=== PATIENT | female | born 1940 | race Caucasian/White ===

== ENCOUNTER 2017-10-13 16:24 | Inpatient (IN) | payer MEDICARE, OTHER ==
[~2017-10-13] VITALS: Ht 154.9 cm; Wt 81.6 kg
[2017-10-13] MEDS ORDERED: CLON0.2T PO (17:33)
[2017-10-13] MEDS ORDERED: METO-356 PO (17:33)
[2017-10-13] MEDS ORDERED: LOSA1TAB39 PO (17:33)
[2017-10-13] MEDS ORDERED: HYDR-3326 PO (17:38)
[2017-10-13] MEDS ORDERED: CELE200C PO (17:38)
[2017-10-13] MEDS ORDERED: GABA-534 PO (17:38)
[2017-10-13] MEDS ORDERED: ONDANSETRON 4 MG/2 ML VIAL IV ONE (17:45)
[2017-10-13] MEDS ORDERED: IV NORMAL SALINE 1000 ML BAG IV ONE (17:45)
[2017-10-13] MEDS ORDERED: MORPHINE SULFATE 2 MG/1 ML DISP.SYRIN IV ONE (17:45)
[2017-10-13] MEDS ORDERED: TRAM50TA2 PO (17:47)
[2017-10-13] MEDS ORDERED: EZET10TA13 PO (17:47)
[2017-10-13] MEDS ORDERED: NYST5ORA PO ×2 (17:47)
[2017-10-13] MEDS ORDERED: DICL100G16 TP (17:47)
[2017-10-13] MEDS ORDERED: ASPI-605 PO (17:47)
[2017-10-13] MEDS ORDERED: ESOM40CA PO (17:47)
[2017-10-13] MEDS ORDERED: ZOLP10TA6 PO (17:47)
[2017-10-13] MEDS ORDERED: LORA1TAB PO (17:47)
[2017-10-13] MEDS ORDERED: ALEN70TA45 PO (17:47)
[2017-10-13] MEDS ORDERED: MORPHINE SULFATE 4 MG/1 ML DISP.SYRIN ONE (18:06)
[2017-10-13] MEDS ORDERED: ONDANSETRON 4 MG/2 ML VIAL ONE ×2 (18:06→20:24)
--- NOTE | 2017-10-13 18:06 | NUR ---
LABS DRAWN AND SENT,MORPHINE AND ZOFRAN ADMINISTERED, PT TO CT SCAN VIA GUERNEY, URINE SENT.
[2017-10-13 18:08] LABS: *BILIRUBIN,URIN NEGATIVE (NEGATIVE); *BLOOD, URINE 3+ (NEGATIVE); *CLARITY,URINE SLIGHTLY CLOUDY (CLEAR); *COLOR,URINE YELLOW (YELLOW); *KETONES,URINE TRACE (NEGATIVE); *PROTEIN,URINE 2+ (NEGATIVE); *UROBILINOGEN,URINE 0.2 E.U./dl (NORMAL); LEUKOCYTE ESTERASE ,URINE TRACE (NEGATIVE); NITRITE, URINE NEGATIVE (NEGATIVE); UGLUCOSE NEGATIVE (NEGATIVE)
[2017-10-13 18:11] LABS: BASOPHILS % (AUTO) 0.4 % (0.0-2.0); HEMATOCRIT 42.6 % (31.2-41.9); HEMOGLOBIN 14.5 g/dL (10.9-14.3); LYMPHOCYTES # (AUTO) 1.3 K/uL (20.0-40.0); LYMPHOCYTES % (AUTO) 9.6 % (20.5-51.5); MEAN CORPUSCULAR HEMOGLOBIN 27.5 uug (24.7-32.8); MEAN CORPUSCULAR HGB CONC 34 g/dL (32.3-35.6); MONOCYTES # (AUTO) 0.4 K/uL (2.0-10.0); MONOCYTES % (AUTO) 2.8 % (0.0-11.0); NEUTROPHILS # (AUTO) 11.5 K/uL (1.8-8.9); NEUTROPHILS % (AUTO) 87.2 % (38.5-71.5); PLATELET COUNT (AUTO) 261 K/uL (179-408); RED BLOOD CELL COUNT(AUTO) 5.26 MIL/uL (3.63-4.92); WHITE BLOOD COUNT (AUTO) 13.1 K/uL (3.8-11.8)
[2017-10-13 18:22] LABS: BACTERIA,URINE RARE /HPF (NONE SEEN); RBC,URINE 20-50 /HPF (0-3); SQUAMOUS EPITHELIAL CELL,UR FEW /HPF (NONE SEEN)
[2017-10-13 18:30] LABS: ALANINE AMINOTRANSFERASE 27 U/L (14-59); ALKALINE PHOSPHATASE 87 U/L (50-136); ASPARTATE AMINOTRANSFERASE 24 U/L (15-37); BILIRUBIN,DIRECT 0.2 mg/dL (0.0-0.2); CARBON DIOXIDE 28 mmol/L (21-32); CHLORIDE 96 mmol/L (98-107); CREATININE 1.2 mg/dL (0.6-1.3); GLUCOSE 133 mg/dL (74-106); LIPASE 160 U/L (73-393); POTASSIUM 3.3 mmol/L (3.5-5.1); TOTAL PROTEIN, SERUM 8.2 g/dL (6.4-8.2); UREA NITROGEN, BLOOD 18 mg/dL (7-18)
--- NOTE | 2017-10-13 18:37 | NUR ---
PT RETURNED FROM CT SCAN, ICE PACK TO UNBILCUS AND PLACED REVERSE TRENDELINBERG.
--- NOTE | 2017-10-13 19:01 | NUR ---
BEDSIDE SBAR RTEPORT TO [facility].
[2017-10-13] MEDS ORDERED: ONDANSETRON IV *ER 4 MG/2 ML VIAL IV ONE (20:00)
--- NOTE | 2017-10-13 21:14 | NUR ---
Dr. Sadler spoke with patient's son, he will schedule surgery for 10/14/17 at 10am. General Consent signed by patient and included in chart.
[2017-10-13] MEDS ORDERED: BISA-79 PO (21:56)
[2017-10-13] MEDS ORDERED: SENN-167 PO (21:56)
[2017-10-13] MEDS: POTASSIUM CHLORIDE 50 ML IV SCH ×2 (22:00→23:00)
[2017-10-14] MEDS ORDERED: SENNOSIDES 1 TABLET PO PRN ×2 (01:00→18:00)
[2017-10-14] MEDS ORDERED: ALENDRONATE SODIUM 70 MG TABLET PO SCH (01:00)
[2017-10-14] MEDS ORDERED: MORPHINE SULFATE 2 MG/1 ML DISP.SYRIN IV PRN (01:15)
[2017-10-14] MEDS ORDERED: ACETAMINOPHEN 325 MG TABLET PO PRN (01:15)
[2017-10-14] MEDS ORDERED: ONDANSETRON 4 MG/2 ML VIAL IV PRN ×2 (01:15→15:45)
[2017-10-14] MEDS ORDERED: ZOLPIDEM 5 MG TABLET PO PRN (01:15)
[2017-10-14] MEDS ORDERED: Z GUARD REMEDY PASTE 57 GM TUBE TOP PRN (01:15)
--- NOTE | 2017-10-14 01:25 | NUR ---
Pt. admitted to [facility], under care of [facility] Belongs List completed
[2017-10-14] MEDS ORDERED: IV NS 1000 ML 1,000 ML IV PRN ×2 (01:30→15:45)
[2017-10-14 02:00] VITALS: BP 122/49
[2017-10-14 04:00] VITALS: BP 108/82
[2017-10-14] MEDS: EZETIMIBE 10 MG TABLET PO SCH (08:21)
[2017-10-14] MEDS: NYSTATIN SUSPENSION 5 ML LIQUID UDC PO SCH ×4 (08:22→21:00)
[2017-10-14] MEDS: CLONIDINE HCL 0.2 MG TABLET PO SCH ×2 (08:22→21:00)
[2017-10-14] MEDS: METOPROLOL SUCCINATE XL 25 MG TAB.SR.24H PO SCH (08:22)
--- NOTE | 2017-10-14 08:30 | NUR ---
Got consent for Hernia repair with manager rehab phone. Pt is in no acute distress. Call light is within reach. Discussed risk and benefits of pain meds re constipation prevention and fall precaution when taking pain meds. Pt verbalized understanding
[2017-10-14] MEDS ORDERED: MORPHINE SULFATE 4 MG/1 ML DISP.SYRIN IV PRN (08:45)
[2017-10-14] MEDS ORDERED: Medication Not On Formulary EA (Losartan/Hydrochlorothiazide (Losartan-Hctz 100-25 Mg Ta PO SCH (09:00)
[2017-10-14] MEDS ORDERED: GABAPENTIN 300 MG CAPSULE PO SCH (09:00)
[2017-10-14] MEDS ORDERED: TRAMADOL HCL 50 MG TABLET PO SCH (09:00)
[2017-10-14] MEDS ORDERED: CELECOXIB 200 MG CAPSULE PO SCH (09:00)
[2017-10-14] MEDS: LOSARTAN POTASSIUM 50 MG TABLET PO SCH ×2 (09:16→21:00)
[2017-10-14] MEDS ORDERED: HYDROCHLOROTHIAZIDE 12.5 MG CAPSULE PO SCH (09:17)
[2017-10-14] MEDS ORDERED: POLYMYXIN B SULFATE 500,000 UNITS, BACITRACIN 50,000 UNITS, NORMAL SALINE 20 ML MC ONE ×3 (10:00)
[2017-10-14] MEDS ORDERED: FENTANYL CITRATE 100 MCG/2 ML AMPUL ONE (10:11)
[2017-10-14] MEDS ORDERED: MIDAZOLAM HCL 2 MG/2 ML VIAL ONE (10:11)
[2017-10-14] MEDS ORDERED: LIDOCAINE HCL 1% 20 ML VIAL ONE (11:04)
[2017-10-14] MEDS ORDERED: BUPIVACAINE 0.25% 30 ML VIAL ONE (11:04)
[2017-10-14] MEDS ORDERED: BACITRACIN ZINC OINT 15 GM TUBE ONE (11:29)
[2017-10-14 13:00] VITALS: BP 126/53
[2017-10-14] MEDS: HYDROCODONE/APAP 5-325MG TABLET PO PRN (15:20)
[2017-10-14 15:36] VITALS: BP 134/48
[2017-10-14] MEDS ORDERED: IRR NORMAL SALINE IRRIGATION 1,000 ML BOTTLE IR ONE (15:36)
[2017-10-14] MEDS ORDERED: VECURONIUM BROMIDE 10 MG VIAL IV ONE (15:36)
[2017-10-14] MEDS ORDERED: DEXAMETHASONE SOD PHOSPHATE 4 MG INJ IV ONE (15:36)
[2017-10-14] MEDS ORDERED: NEOSTIGMINE METHYLSULFATE 10 MG/10 ML VIAL IV ONE (15:36)
[2017-10-14] MEDS ORDERED: CEFAZOLIN 1 G VIAL MC ONE (15:36)
[2017-10-14] MEDS ORDERED: SEVOFLURANE 250 ML BOTTLE IH ONE (15:36)
[2017-10-14] MEDS ORDERED: ETOMIDATE 20 MG/10 ML VIAL MC ONE (15:36)
[2017-10-14] MEDS ORDERED: GLYCOPYRROLATE 0.2 MG/ML VIAL MC ONE (15:36)
[2017-10-14] MEDS ORDERED: IV NORMAL SALINE 1000 ML BAG IV ONE (15:36)
[2017-10-14] MEDS ORDERED: PROPOFOL 200 MG/20 ML BOTTLE IV ONE (15:36)
[2017-10-14] MEDS ORDERED: ONDANSETRON 4 MG/2 ML VIAL IV ONE (15:36)
[2017-10-14] MEDS ORDERED: IBUPROFEN 800 MG TABLET PO ONE (15:45)
[2017-10-14] MEDS ORDERED: ACETAMINOPHEN 325 MG TABLET PO ONE (15:45)
[2017-10-14] MEDS ORDERED: GABAPENTIN 300 MG CAPSULE PO ONE (15:45)
--- NOTE | 2017-10-14 18:00 | NUR ---
Pt's surgical site on abd intact no bleeding noted. Pt urinating and had small bm. Pain management effective with [place] tab no fall noted this shift. Call light is within reach.
--- NOTE | 2017-10-14 19:20 | NUR ---
RECEIVED IN BED AWAKE SPEAK SCOTTISH, BUT GRANDSON AT BEDSIDE TO TIMBER SIZER OPERATOR FOR THE PATIENT, ABDOMINAL DRESSING INTACT, ABDOMINIAL BINDER IN PLACE, WILL MEDICATED FOR PAIN ORDERED. CALL LIGHT WITHIN REACH.
[2017-10-14 19:30] VITALS: BP 113/40
[2017-10-14] MEDS ORDERED: LORAZEPAM 1 MG TABLET PO SCH (21:00)
[2017-10-14] MEDS: GABAPENTIN 100 MG CAPSULE PO SCH (21:00)
[2017-10-14] MEDS: HYDROCHLOROTHIAZIDE 12.5 MG CAPSULE PO SCH (21:00)
[2017-10-14] MEDS: ACETAMINOPHEN 325 MG TABLET PO SCH (22:00)
[2017-10-14] MEDS: IBUPROFEN 600 MG TABLET PO SCH (22:00)
[2017-10-15 04:00] VITALS: BP 130/46
[2017-10-15] MEDS: IBUPROFEN 600 MG TABLET PO SCH ×2 (06:00→13:06)
[2017-10-15] MEDS: ACETAMINOPHEN 325 MG TABLET PO SCH ×2 (06:46→13:06)
[2017-10-15 07:35] LABS: BASOPHILS % (AUTO) 0.1 % (0.0-2.0); EOSINOPHILS % (AUTO) 0.1 % (0.0-7.0); LYMPHOCYTES # (AUTO) 2.1 K/uL (20.0-40.0); LYMPHOCYTES % (AUTO) 20.2 % (20.5-51.5); MEAN CORPUSCULAR HEMOGLOBIN 27.8 uug (24.7-32.8); MEAN CORPUSCULAR HGB CONC 34 g/dL (32.3-35.6); MEAN CORPUSCULAR VOLUME 82.2 fL (75.5-95.3); MONOCYTES # (AUTO) 0.7 K/uL (2.0-10.0); MONOCYTES % (AUTO) 6.8 % (0.0-11.0); NEUTROPHILS # (AUTO) 7.6 K/uL (1.8-8.9); NEUTROPHILS % (AUTO) 72.8 % (38.5-71.5); RED BLOOD CELL COUNT(AUTO) 3.82 MIL/uL (3.63-4.92); WHITE BLOOD COUNT (AUTO) 10.5 K/uL (3.8-11.8)
[2017-10-15 07:48] LABS: CARBON DIOXIDE 26 mmol/L (21-32); CHLORIDE 105 mmol/L (98-107); GLUCOSE 89 mg/dL (74-106); MAGNESIUM 1.6 mg/dL (1.8-2.4); PHOSPHOROUS 3.4 mg/dL (2.5-4.9); POTASSIUM 3.4 mmol/L (3.5-5.1); UREA NITROGEN, BLOOD 20 mg/dL (7-18)
[2017-10-15 07:58] LABS: HEMATOCRIT 31.4 % (31.2-41.9); HEMOGLOBIN 10.6 g/dL (10.9-14.3); PLATELET COUNT (AUTO) 185 K/uL (179-408)
[2017-10-15 08:31] LABS: CHOLESTEROL 194 mg/dL (<200); HDL CHOLESTEROL 49 mg/dL (40-60); TRIGLYCERIDES 91 MG/DL (30-150)
[2017-10-15] MEDS: METOPROLOL SUCCINATE XL 25 MG TAB.SR.24H PO SCH (09:00)
[2017-10-15] MEDS ORDERED: GABAPENTIN 300 MG CAPSULE PO SCH (09:00)
[2017-10-15] MEDS ORDERED: POTASSIUM CHLORIDE 20 MEQ TAB.PRT.SR PO ONE (09:15)
[2017-10-15] MEDS ORDERED: MAGNESIUM SULFATE/D5W 100 ML IV SCH (09:15)
[2017-10-15] MEDS: HYDROCODONE/APAP 5-325MG TABLET PO PRN (09:22)
[2017-10-15] MEDS: NYSTATIN SUSPENSION 5 ML LIQUID UDC PO SCH ×2 (09:22→13:06)
[2017-10-15] MEDS: HYDROCHLOROTHIAZIDE 12.5 MG CAPSULE PO SCH (09:22)
[2017-10-15] MEDS: EZETIMIBE 10 MG TABLET PO SCH (09:22)
[2017-10-15] MEDS: GABAPENTIN 100 MG CAPSULE PO SCH (09:22)
[2017-10-15] MEDS: CLONIDINE HCL 0.2 MG TABLET PO SCH (09:23)
[2017-10-15] MEDS: LOSARTAN POTASSIUM 50 MG TABLET PO SCH (09:23)
[2017-10-15 11:09] VITALS: BP 149/62
--- NOTE | 2017-10-15 15:00 | NUR ---
Pt is in no acute distress. Call light is within reach. Discharge instructions given to patient and at bedside using director of physiotherapy services phone. Pt and verbalized understanding. Pt to f/u with PMD and surgical dr coats. Medication education given re rX written by Dr coats. IV d/c. Pt's belongings taken by .
== END 2017-10-15 15:40 | disposition home or self-care (01) | DRG 354 ==
LOC: ER 16:25 → OBSER 22:01 → MED 10-14 01:11
PROVIDERS: ADMIT Internal Medicine; ATTEND Nurse Practitioner Acute Care
PROC: 0DBU0ZZ Excision of Omentum, Open Approach (ICD-10-PCS; 2017-10-14)
PROC: 0WUF0JZ Supplement Abdominal Wall with Synthetic Substitute, Open Approach (ICD-10-PCS; principal; 2017-10-14 10:10)
DX: K42.0 Umbilical hernia with obstruction, without gangrene (principal); J98.11 Atelectasis; E66.01 Morbid (severe) obesity due to excess calories; E78.5 Hyperlipidemia, unspecified; Z90.49 Acquired absence of other specified parts of digestive tract; Z85.820 Personal history of malignant melanoma of skin; K21.9 Gastro-esophageal reflux disease without esophagitis; K44.9 Diaphragmatic hernia without obstruction or gangrene; K57.90 Diverticulosis of intestine, part unspecified, without perforation or abscess without bleeding; Z68.34 Body mass index [BMI] 34.0-34.9, adult; Z71.3 Dietary counseling and surveillance; E87.6 Hypokalemia; M47.816 Spondylosis without myelopathy or radiculopathy, lumbar region; Z79.82 Long term (current) use of aspirin; Z79.899 Other long term (current) drug therapy; N28.1 Cyst of kidney, acquired; I10 Essential (primary) hypertension; G89.4 Chronic pain syndrome; M19.90 Unspecified osteoarthritis, unspecified site; M54.30 Sciatica, unspecified side; M81.0 Age-related osteoporosis without current pathological fracture
CPT/HCPCS: 36415; 70030-TC; 71045; 83690; 83735; 84100; 85025; 85730; 93005; A4217; A4649; A4663; G0378; J0690; J1100; J2250; J2270; J2405; J2710; J3010; J3475; J3480; J3490; J7030